=== PATIENT | male | born 1975 | race African-American/Black ===

== ENCOUNTER 2020-01-23 21:40 | Emergency (ER) | payer OTHER ==
[~2020-01-23] VITALS: Ht 180.3 cm; Wt 83.9 kg
[2020-01-23] MEDS: INSULIN REGULAR, HUMAN 100 UNIT in IV NS 0.9% 99 ML IV STA ×2 (00:25)
--- NOTE | 2020-01-23 21:43 | NUR ---
[facility] [phone]
--- NOTE | 2020-01-23 22:23 | NUR ---
BG 501, AWARE
[2020-01-23] MEDS ORDERED: IV NS 0.9% 1,000 ML BAG IV ONE (22:30)
[2020-01-23] MEDS ORDERED: IOHEXOL-300 100 ML VIAL IV ONE (22:42)
[2020-01-23] MEDS ORDERED: IV NS 0.9% 250 ML IV ONE (22:43)
[2020-01-23 23:13] LABS: BASOPHILS % (AUTO) 0.1 % (0.0-2.0); EOSINOPHILS % (AUTO) 0.1 % (0.0-6.0); HEMATOCRIT 30 % (39-51); HEMOGLOBIN 9.7 g/dL (13.5-17.5); LYMPHOCYTES % (AUTO) 2.8 % (20.0-44.0); MEAN CORPUSCULAR HGB CONC 32 g/dl (31.0-36.0); MEAN CORPUSCULAR VOLUME 80 fL (80-96); MONOCYTES # (AUTO) 7.1 /CMM (0.1-1.30); NEUTROPHILS # (AUTO) 27.3 /CMM (1.8-8.9); PLATELET COUNT (AUTO) 360 /CMM (150-450); RED BLOOD CELL COUNT(AUTO) 3.78 MIL/uL (4.5-6.0)
[2020-01-23] MEDS ORDERED: LORAZEPAM INJ 2 MG/ML VIAL IV ONE (23:30)
[2020-01-23 23:39] LABS: ALANINE AMINOTRANSFERASE 296 U/L (12-78); ALKALINE PHOSPHATASE 269 U/L (46-116); ASPARTATE AMINOTRANSFERASE 297 U/L (15-37); B-TYPE NATRIURETIC PEPTIDE 43369 PG/ML (0-125); BILIRUBIN,DIRECT 0.2 mg/dL (0.0-0.2); BILIRUBIN,TOTAL 0.5 mg/dL (0.2-1.0); CALCIUM, SERUM 7.9 mg/dL (8.5-10.1); CARBON DIOXIDE 12 mmol/L (21-32); CHLORIDE 85 mmol/L (98-107); CREATININE 7.4 mg/dL (0.6-1.3); POTASSIUM 5.8 mmol/L (3.5-5.1); TOTAL PROTEIN, SERUM 4.8 g/dL (6.4-8.2)
[2020-01-23 23:42] LABS: UREA NITROGEN, BLOOD 94 mg/dL (7-18)
[2020-01-23 23:43] LABS: ALBUMIN 1.3 g/dL (3.4-5.0); GLUCOSE 474 mg/dL (74-106); SODIUM SERUM 117 mmol/L (136-145); WHITE BLOOD COUNT (AUTO) 35.5 K/uL (4.3-11.0)
[2020-01-23] MEDS ORDERED: PIPERACILLIN /TAZOBACTAM 2.25 G VIAL IV ONE (23:52)
[2020-01-24] MEDS ORDERED: VANCOMYCIN 1 GM in IV D5W 250 ML IV ONE ×2
[2020-01-24] MEDS ORDERED: PIPERACILLIN /TAZOBACTAM 2.25 G in IV D5W 50 ML IV ONE ×2
--- NOTE | 2020-01-24 00:01 | NUR ---
EMT AT BEDSIDE FOR EKG
[2020-01-24] MEDS ORDERED: VANCOMYCIN 1 GM VIAL ONE (00:08)
[2020-01-24] MEDS ORDERED: INSULIN REGULAR, HUMAN 100 UNIT/ML 10 ML VIAL ONE (00:08)
[2020-01-24 00:12] LABS: BAND % (MANUAL) 15 % (0.0-5.0); EOSINOPHILS % (MANUAL) 2 % (0-4); LYMPHOCYTES % (MANUAL) 9 % (16-48); METAMYELOCYTES % 4 % (0-0); MONOCYTES % (MANUAL) 10 % (0-11.0); NEUTROPHILS % (MANUAL) 60 (42-76)
[2020-01-24 00:20] LABS: ABG BASE EXCESS -13.1 mmol/L; ABG OXYGEN SATURATION 95.5 % (92.0-98.5); ABG PCO2 24.6 mmHg (35.0-45.0); ABG PH 7.299 (7.350-7.450); ABG PO2 86.6 mmHg (75.0-100.0); AaDO2 33.7 mmHg; COHb 0.3 % (0.5-1.5); MetHb 0.2 % (0.0-1.5); SITE, ABG Right Radial; VENT MODE, BG Room Air
[2020-01-24] MEDS: INSULIN REGULAR, HUMAN 100 UNIT in IV NS 0.9% 99 ML IV STA ×2 (00:25)
--- NOTE | 2020-01-24 00:25 | NUR ---
REPEAT BG 528, MD AWARE. PT STARTED ON 8UNITS/HR INSULIN
[2020-01-24] MEDS ORDERED: IV NS 0.9% 1,000 ML BAG IV ONE (00:30)
--- NOTE | 2020-01-24 00:35 | NUR ---
PT BROUGHT TO CT
--- NOTE | 2020-01-24 00:55 | NUR ---
SPOKE TO PT REGARDING MED LIST, UNABLE TO PLACED IN "RECONCILE MEDS"
--- NOTE | 2020-01-24 00:56 | NUR ---
SPOKE TO PT STATED HE TAKES: INSULIN LANTUS 30UNITS DAILY INSULIN HUMULIN 60UNITS DAILY XANAX UNKNOWN DOSE PRN NORCO 10 QID CARVEDILOL 30MG DAILY
[2020-01-24] MEDS ORDERED: ONDANSETRON HCL/PF 4 MG/2 ML VIAL IVP PRN (01:00)
[2020-01-24] MEDS ORDERED: ZOLPIDEM TARTRATE 5 MG TABLET PO PRN (01:00)
[2020-01-24] MEDS ORDERED: HYDROCODONE/APAP 5/325MG TABLET PO PRN (01:00)
[2020-01-24] MEDS ORDERED: MAGNESIUM HYDROXIDE 30 ML UDC PO PRN (01:00)
[2020-01-24] MEDS ORDERED: IV NS 0.9% 1,000 ML IV SCH (01:00)
[2020-01-24] MEDS ORDERED: ACETAMINOPHEN 325 MG TABLET PO PRN (01:00)
[2020-01-24] MEDS ORDERED: Z GUARD REMEDY 2 OZ OINT TP PRN (01:00)
[2020-01-24] MEDS ORDERED: INSULIN REGULAR, HUMAN 100 UNIT in IV NS 0.9% 99 ML IV PRN ×4 (01:00→02:30)
--- NOTE | 2020-01-24 01:15 | NUR ---
DR MONROE ON THE PHONE W/ DR TORRES, SURGEON
--- NOTE | 2020-01-24 01:40 | NUR ---
DR RIOS, HOSPITALIST AT BED SIDE
--- NOTE | 2020-01-24 01:41 | NUR ---
[facility] CALLED FOR HIGHER LEVEL OF CARE. PER JOEY ONLY ACCEPTING TRAUMA AND OB.
[2020-01-24] MEDS ORDERED: CLINDAMYCIN IV RTU IN D5W 900 MG/50 ML PIGGYBACK IV SCH (02:00)
--- NOTE | 2020-01-24 02:01 | NUR ---
[facility] FAXED TO [facility] FOR HIGHER LEVEL OF CARE.
[2020-01-24] MEDS ORDERED: CLINDAMYCIN 900 MG/6 ML VIAL ONE (02:15)
[2020-01-24 02:45] VITALS: BP 105/67
--- NOTE | 2020-01-24 04:01 | NUR ---
SPOKE TO ANTWON FROM [facility]. PT ACCEPTED TO 6-ICU [facility] [place]. ADDRESS: [address] [place] [address] CALL , [facility] 2, THEN PRESS 2 AND ASK FOR RANDOLPH DICKSON WITH ETA
--- NOTE | 2020-01-24 04:28 | NUR ---
[facility] TRANSPORT ETA 30 MINS
[2020-01-24 04:30] LABS: CALCIUM, SERUM 7.4 mg/dL (8.5-10.1); CREATININE 7.2 mg/dL (0.6-1.3); MAGNESIUM 2.8 mg/dL (1.8-2.4); PHOSPHORUS 7.5 mg/dL (2.5-4.9); POTASSIUM 5.1 mmol/L (3.5-5.1)
[2020-01-24 04:46] LABS: IRON, SERUM 11 ug/dl (50-175); TOTAL IRON BINDING CAPACITY 95 ug/dl (250-450)
--- NOTE | 2020-01-24 04:53 | NUR ---
PT RESTING COMFORTABLY. VSS.
[2020-01-24 04:59] LABS: FERRITIN 352 ng/mL (8-388)
--- NOTE | 2020-01-24 05:11 | NUR ---
[facility] AT BED SIDE TO TRANSFER THE PT
--- NOTE | 2020-01-24 05:32 | NUR ---
PT TRANSFERED TO [facility] BED 6 ICU.
[2020-01-24] MEDS ORDERED: PIPERACILLIN /TAZOBACTAM 3.375 G in IV D5W 50 ML IV SCH (06:00)
== END 2020-01-24 05:42 | disposition short-term general hospital (02) ==
LOC: ER 21:42 → UNDOADMIN 01-24 01:23 → ICU 01-24 01:23 → ER 01-24 05:42
DX: E10.10 Type 1 diabetes mellitus with ketoacidosis without coma (principal); Z79.899 Other long term (current) drug therapy; N49.3 Fournier gangrene; E87.5 Hyperkalemia; N17.9 Acute kidney failure, unspecified; E87.1 Hypo-osmolality and hyponatremia; Z20.828 Contact with and (suspected) exposure to other viral communicable diseases; L02.31 Cutaneous abscess of buttock; I10 Essential (primary) hypertension; J90 Pleural effusion, not elsewhere classified; I31.3 Pericardial effusion (noninflammatory); Z72.0 Tobacco use; D64.9 Anemia, unspecified; R79.89 Other specified abnormal findings of blood chemistry; E88.09 Other disorders of plasma-protein metabolism, not elsewhere classified
CPT/HCPCS: 36415 ×2; 36600 ×2; 71045; 74176; 80048 ×2; 80061; 80076; 82010; 82728; 82803; 82962 ×8; 83036; 83540; 83605; 83735; 83880; 84100; 84484; 85007; 85025; 85730; 87040 ×2; 87077; 87081; 87186; 87426; 93005; 96361; 96365 ×2; 96366; 96367; 96368; 99291; 99292; A6253; A6403; C9803; J1815 ×2; J2543 ×2; J3370; J3490 ×2; J7030 ×5; J7050; J7060 ×2; Q9967

== ENCOUNTER 2024-11-01 19:05 | Inpatient (IN) | payer MEDICAID ==
[~2024-11-01] VITALS: Ht 182.9 cm; Wt 74.1 kg
[2024-11-01] MEDS: IV NS 0.9% 1,000 ML BAG IV ONE (20:10)
[2024-11-01 20:17] LABS: PLATELET COUNT (AUTO) 143 K/uL (150-450); RED BLOOD CELL COUNT(AUTO) 3.63 MIL/uL (4.5-6.0); RED CELL DISTRIBUTION WIDTH 18.1 % (11.5-15.0); WHITE BLOOD COUNT (AUTO) 6.0 K/uL (4.3-11.0)
[2024-11-01] MEDS ORDERED: ONDANSETRON HCL/PF 4 MG/2 ML VIAL ONE (20:34)
[2024-11-01] MEDS: ONDANSETRON HCL/PF 4 MG/2 ML VIAL IV ONE (20:37)
[2024-11-01 20:48] LABS: ASPARTATE AMINOTRANSFERASE 16 U/L (15-37); CALCIUM, SERUM 8.6 mg/dL (8.5-10.1); SODIUM SERUM 127 mmol/L (136-145); TOTAL PROTEIN, SERUM 7.5 g/dL (6.4-8.2); UREA NITROGEN, BLOOD 53 mg/dL (7-18)
[2024-11-01 20:51] LABS: CREATININE 7.8 mg/dL (0.6-1.3)
[2024-11-01 21:26] LABS: NT-PRO BNP 24469 pg/mL (0-125)
[2024-11-01] MEDS ORDERED: INSULIN REGULAR, HUMAN 100 UNIT/ML 10 ML VIAL ONE (21:49)
[2024-11-01] MEDS ORDERED: CEFTRIAXONE 1GM BAG (ER ONLY) 50 ML IV ONE (21:56)
[2024-11-01 22:24] LABS: PHOSPHORUS 4.8 mg/dL (2.5-4.9)
[2024-11-01] MEDS ORDERED: ACETAMINOPHEN 325 MG TABLET PO PRN (22:30)
[2024-11-01] MEDS ORDERED: INSULIN REGULAR, HUMAN 100 UNIT in IV NS 0.9% 99 ML IV PRN ×2 (22:30→23:30)
[2024-11-01] MEDS: ACETAMINOPHEN 325 MG TABLET PO ONE (22:38)
[2024-11-01] MEDS: CEFTRIAXONE 1 G in IV D5W 50 ML IV ONE (22:45)
[2024-11-01] MEDS ORDERED: MORPHINE SULFATE INJ 4 MG/ML DISP.SYRIN ONE (22:46)
[2024-11-01] MEDS: MORPHINE SULFATE INJ 2 MG/ML DISP.SYRIN IV ONE (22:55)
[2024-11-01] MEDS: IV NS 0.9% 1,000 ML IV PRN (23:19)
[2024-11-01] MEDS: INSULIN REGULAR, HUMAN 100 UNITS in IV NS 0.9% 100 ML IV PRN (23:25)
[2024-11-01] MEDS ORDERED: LEVOFLOXACIN 750 MG /D5W 150ML 150 ML IV ONE (23:47)
[2024-11-01] MEDS ORDERED: AZITHROMYCIN 500 MG VIAL ONE (23:58)
[2024-11-02] VITALS (49 sets, daily range): BP systolic 130–218; BP diastolic 65–121; TEMP 98–98.2; O2SAT 92–100
[2024-11-02] MEDS: AZITHROMYCIN 500 MG in IV D5W 250 ML IV ONE
[2024-11-02] MEDS: LEVOFLOXACIN 750 MG /D5W 150ML 750 MG in PREMIX 1 EA IV ONE (00:34)
[2024-11-02] MEDS: BLOOD SUGAR DIAGNOSTIC 1 EACH STRIP IN SCH ×2 (00:34→12:02)
[2024-11-02] MEDS: IV NS 0.9% 250 ML IV PRN (00:35)
[2024-11-02] MEDS: INSULIN REGULAR, HUMAN 100 UNIT in IV NS 0.9% 99 ML IV PRN (01:08)
[2024-11-02 01:20] LABS: ABG BASE EXCESS -13.3 mmol/L (-2.0-3.0); ABG OXYGEN SATURATION 97.8 % (94.0-98.0); ABG PCO2 24.2 mmHg (35.0-48.0); ABG PH 7.299 (7.350-7.450); ABG PO2 112.5 mmHg (83.0-108.0); ABG TOTAL HEMOGLOBIN 9.5 G/dL (13.5-17.5); FLOW, BLOOD GAS 10.00 L/min (0.00-30.00); FRACTIONATED INSPIRED OXYGEN 60.0 %; SITE, ABG RIGHT BRACHIAL
[2024-11-02] MEDS: HYDROMORPHONE 1 MG/1 ML DISP.SYRIN IV STA (02:46)
[2024-11-02 03:25] LABS: CALCIUM, SERUM 8.3 mg/dL (8.5-10.1); SODIUM SERUM 128.0 mmol/L (136-145); UREA NITROGEN, BLOOD 58.0 mg/dL (7-18)
[2024-11-02 03:30] LABS: CREATININE 8.1 mg/dL (0.6-1.3)
[2024-11-02 04:55] LABS: PLATELET COUNT (AUTO) 124 K/uL (150-450); RED BLOOD CELL COUNT(AUTO) 3.09 MIL/uL (4.5-6.0); RED CELL DISTRIBUTION WIDTH 17.4 % (11.5-15.0); WHITE BLOOD COUNT (AUTO) 5.3 K/uL (4.3-11.0)
[2024-11-02 05:29] LABS: CALCIUM, SERUM 7.9 mg/dL (8.5-10.1); CREATININE 6.7 mg/dL (0.6-1.3); PHOSPHORUS 3.2 mg/dL (2.5-4.9); SODIUM SERUM 133.0 mmol/L (136-145); UREA NITROGEN, BLOOD 46.0 mg/dL (7-18)
[2024-11-02] MEDS: IV D5/0.45 NACL 1,000 ML IV PRN (06:35)
[2024-11-02] MEDS ORDERED: NIFE90TA38 PO (08:01)
[2024-11-02] MEDS ORDERED: INSU100I24 SQ (08:01)
[2024-11-02] MEDS ORDERED: LOSA50TA39 PO (08:01)
[2024-11-02] MEDS ORDERED: HYDR-4077 PO (08:01)
[2024-11-02] MEDS ORDERED: INSU100I14 SQ (08:01)
[2024-11-02] MEDS ORDERED: CARV25TA2 PO (08:01)
[2024-11-02] MEDS ORDERED: SEVE800T28 PO (08:01)
[2024-11-02] MEDS: PANTOPRAZOLE 40 MG VIAL IV SCH (09:10)
[2024-11-02] MEDS: oxyCODONE/APAP (5/325 MG) 1 UDTAB TABLET PO PRN (09:11)
[2024-11-02] MEDS: ONDANSETRON HCL/PF 4 MG/2 ML VIAL IVP PRN (10:28)
[2024-11-02 10:39] LABS: CALCIUM, SERUM 8.2 mg/dL (8.5-10.1); CREATININE 5.2 mg/dL (0.6-1.3); SODIUM SERUM 137.0 mmol/L (136-145); UREA NITROGEN, BLOOD 28.0 mg/dL (7-18)
[2024-11-02] MEDS ORDERED: DEXTROSE 50%-WATER 50 ML DISP.SYRIN IVP PRN (11:00)
[2024-11-02] MEDS: BLOOD SUGAR DIAGNOSTIC 1 EACH STRIP VI SCH (12:10)
[2024-11-02] MEDS: CLONIDINE HCL 0.1 MG TABLET PO PRN (12:12)
[2024-11-02] MEDS: INSULIN REGULAR, HUMAN 100 UNIT/ML 3 ML VIAL SQ PRN (17:42)
[2024-11-02] MEDS: *INSULIN REGULAR(HUMULIN R)HUM 100 UNIT/ML VIAL SQ PRN (22:26)
[2024-11-02] MEDS ORDERED: LEVOFLOXACIN 250 MG /D5W 50 ML 50 ML IV ONE (23:31)
[2024-11-02] MEDS: LEVOFLOXACIN 250 MG /D5W 50 ML 50 ML IV SCH (23:44)
[2024-11-03] VITALS (40 sets, daily range): BP systolic 129–192; BP diastolic 61–100; TEMP 98.2–98.4; O2SAT 92–100
[2024-11-03] MEDS: DEXTROSE 50%-WATER 50 ML DISP.SYRIN IV PRN (01:40)
[2024-11-03] MEDS: HYDROMORPHONE 1 MG/1 ML DISP.SYRIN IV ONE (02:37)
[2024-11-03 04:10] LABS: CALCIUM, SERUM 8.7 mg/dL (8.5-10.1); CREATININE 6.3 mg/dL (0.6-1.3); PHOSPHORUS 4.2 mg/dL (2.5-4.9); SODIUM SERUM 133.0 mmol/L (136-145); UREA NITROGEN, BLOOD 40.0 mg/dL (7-18)
[2024-11-03 04:21] LABS: PLATELET COUNT (AUTO) 123 K/uL (150-450); RED BLOOD CELL COUNT(AUTO) 3.43 MIL/uL (4.5-6.0); RED CELL DISTRIBUTION WIDTH 18.0 % (11.5-15.0); WHITE BLOOD COUNT (AUTO) 3.7 K/uL (4.3-11.0)
[2024-11-03 05:08] LABS: HEPATITIS B SURFACE AB (QUAL) Reactive (.)
[2024-11-03] MEDS ORDERED: CARVEDILOL 12.5 MG TABLET PO SCH ×2 (08:00→09:00)
[2024-11-03] MEDS: PANTOPRAZOLE 40 MG TABLET.DR PO SCH (08:21)
[2024-11-03] MEDS: NIFEdipine XL (30MG) 30 MG TAB PO SCH (08:22)
[2024-11-03] MEDS: LOSARTAN POTASSIUM 50 MG TABLET PO SCH ×2 (08:23→09:00)
[2024-11-03] MEDS: CARVEDILOL 12.5 MG TABLET PO SCH ×2 (08:24→17:00)
[2024-11-03] MEDS: SEVELAMER CARBONATE 800 MG TABLET PO SCH (13:56)
[2024-11-04] VITALS (22 sets, daily range): BP systolic 112–164; BP diastolic 44–83; TEMP 97.8–99; O2SAT 95–100
[2024-11-04] MEDS: CLONIDINE HCL 0.1 MG TABLET PO PRN (00:19)
[2024-11-04 03:02] LABS: PLATELET COUNT (AUTO) 124 K/uL (150-450); RED BLOOD CELL COUNT(AUTO) 3.32 MIL/uL (4.5-6.0); RED CELL DISTRIBUTION WIDTH 17.3 % (11.5-15.0); WHITE BLOOD COUNT (AUTO) 3.8 K/uL (4.3-11.0)
[2024-11-04 03:20] LABS: CALCIUM, SERUM 8.3 mg/dL (8.5-10.1); CREATININE 4.7 mg/dL (0.6-1.3); PHOSPHORUS 3.2 mg/dL (2.5-4.9); SODIUM SERUM 138.0 mmol/L (136-145); UREA NITROGEN, BLOOD 26.0 mg/dL (7-18)
[2024-11-04] MEDS: HYDROMORPHONE 1 MG/1 ML DISP.SYRIN IV ONE (23:11)
[2024-11-05] VITALS (8 sets, daily range): BP systolic 135–187; BP diastolic 68–88; TEMP 97.3–99; O2SAT 100
[2024-11-05 06:21] LABS: PLATELET COUNT (AUTO) 118 K/uL (150-450); RED BLOOD CELL COUNT(AUTO) 3.30 MIL/uL (4.5-6.0); RED CELL DISTRIBUTION WIDTH 17.7 % (11.5-15.0); WHITE BLOOD COUNT (AUTO) 3.9 K/uL (4.3-11.0)
[2024-11-05 06:28] LABS: CALCIUM, SERUM 8.6 mg/dL (8.5-10.1); CREATININE 5.2 mg/dL (0.6-1.3); PHOSPHORUS 3.4 mg/dL (2.5-4.9); SODIUM SERUM 135.0 mmol/L (136-145); UREA NITROGEN, BLOOD 32.0 mg/dL (7-18)
[2024-11-06] VITALS: BP 152/78; TEMP 97.5; O2SAT 100
[2024-11-06 04:00] VITALS: BP_SYST 152; BP_SYST 162; BP_DIAS 69; BP_DIAS 78; TEMP 97.5; TEMP 97.9; O2SAT 100
[2024-11-06 08:00] VITALS: BP 154/66; TEMP 98.2; O2SAT 96
[2024-11-06 08:32] LABS: PLATELET COUNT (AUTO) 147 K/uL (150-450); RED BLOOD CELL COUNT(AUTO) 3.39 MIL/uL (4.5-6.0); RED CELL DISTRIBUTION WIDTH 17.8 % (11.5-15.0); WHITE BLOOD COUNT (AUTO) 4.0 K/uL (4.3-11.0)
[2024-11-06 08:47] LABS: CALCIUM, SERUM 8.8 mg/dL (8.5-10.1); CREATININE 4.1 mg/dL (0.6-1.3); PHOSPHORUS 2.9 mg/dL (2.5-4.9); SODIUM SERUM 135.0 mmol/L (136-145); UREA NITROGEN, BLOOD 25.0 mg/dL (7-18)
[2024-11-06] MEDS ORDERED: NEPRO VAN 237 ML CAN PO PRN (11:30)
[2024-11-06 12:00] VITALS: BP 122/60; TEMP 97.9; O2SAT 99
[2024-11-06 16:00] VITALS: BP 114/66; TEMP 98.6; O2SAT 98
[2024-11-06] MEDS: GABAPENTIN 100 MG CAPSULE PO SCH (16:16)
[2024-11-06] MEDS: LEVOFLOXACIN (250MG) 250 MG TABLET PO SCH (23:29)
[2024-11-07] VITALS: BP_SYST 141; BP_DIAS 141; BP_DIAS 64; TEMP 98.1; O2SAT 97
[2024-11-07 05:00] VITALS: BP 149/70; TEMP 98.1; O2SAT 97
[2024-11-07 08:00] VITALS: BP 150/83; TEMP 98.2; O2SAT 100
[2024-11-07 11:30] VITALS: BP 147/63; TEMP 98.1; O2SAT 100
[2024-11-07 16:00] VITALS: BP 155/81; TEMP 98.2; O2SAT 100
[2024-11-07 20:00] VITALS: BP 141/61; TEMP 98.4; O2SAT 100
[2024-11-07] MEDS: SENNOSIDES 8.6 MG TABLET PO SCH (21:03)
[2024-11-07] MEDS: INSULIN GLARGINE, 100 UNIT/ML CARTRIDGE SQ SCH (21:12)
[2024-11-08] VITALS: BP 147/69; TEMP 98.1; O2SAT 100
[2024-11-08 04:00] VITALS: BP 100/64; TEMP 97.7; O2SAT 99
[2024-11-08 06:05] LABS: PLATELET COUNT (AUTO) 151 K/uL (150-450); RED BLOOD CELL COUNT(AUTO) 3.18 MIL/uL (4.5-6.0); RED CELL DISTRIBUTION WIDTH 17.5 % (11.5-15.0); WHITE BLOOD COUNT (AUTO) 4.3 K/uL (4.3-11.0)
[2024-11-08 06:17] LABS: ASPARTATE AMINOTRANSFERASE 23.0 U/L (15-37); CALCIUM, SERUM 8.8 mg/dL (8.5-10.1); CREATININE 5.8 mg/dL (0.6-1.3); PHOSPHORUS 3.0 mg/dL (2.5-4.9); SODIUM SERUM 136.0 mmol/L (136-145); TOTAL PROTEIN, SERUM 6.0 g/dL (6.4-8.2); UREA NITROGEN, BLOOD 32.0 mg/dL (7-18)
[2024-11-08 07:30] VITALS: BP 104/59; TEMP 97.3; O2SAT 100
[2024-11-08 15:47] VITALS: BP 140/70; TEMP 97.9; O2SAT 100
[2024-11-08 20:00] VITALS: BP 147/78; TEMP 97.5; O2SAT 100
[2024-11-08 23:02] VITALS: BP 147/78; TEMP 97.5; O2SAT 100
[2024-11-09 06:49] LABS: CALCIUM, SERUM 8.5 mg/dL (8.5-10.1); CREATININE 0.8 mg/dL (0.6-1.3); SODIUM SERUM 143.0 mmol/L (136-145); UREA NITROGEN, BLOOD 18.0 mg/dL (7-18)
[2024-11-09 08:00] VITALS: BP 163/78; TEMP 97.6; O2SAT 99
[2024-11-09 08:20] VITALS: BP 180/94
[2024-11-09 08:34] VITALS: BP 163/78
[2024-11-09] MEDS: BISACODYL (5 MG) 5 MG TABLET.DR PO PRN (10:28)
[2024-11-09] MEDS: POTASSIUM CHLORIDE 20 MEQ TAB.PRT.SR PO SCH (10:28)
[2024-11-09] MEDS ORDERED: GABA100C PO (10:50)
== END 2024-11-09 15:32 | DRG 420 ==
LOC: ER 19:07 → ICU 22:14 → TELE 11-04 16:42 → MED 11-08 20:34
PROVIDERS: ADMIT Registered Nurse Psychiatric/Mental Health; ATTEND Nurse Practitioner Family
PROC: 5A1D70Z Performance of Urinary Filtration, Intermittent, Less than 6 Hours Per Day (ICD-10-PCS; principal; 2024-11-02)
DX: E10.10 Type 1 diabetes mellitus with ketoacidosis without coma (principal); J96.01 Acute respiratory failure with hypoxia; I12.0 Hypertensive chronic kidney disease with stage 5 chronic kidney disease or end stage renal disease; D63.8 Anemia in other chronic diseases classified elsewhere; N18.6 End stage renal disease; E10.22 Type 1 diabetes mellitus with diabetic chronic kidney disease; E87.70 Fluid overload, unspecified; E87.5 Hyperkalemia; F17.210 Nicotine dependence, cigarettes, uncomplicated; G89.29 Other chronic pain; Z71.6 Tobacco abuse counseling; Z87.01 Personal history of pneumonia (recurrent); Z88.0 Allergy status to penicillin; Z79.4 Long term (current) use of insulin; Z99.2 Dependence on renal dialysis; Z93.3 Colostomy status; J44.9 Chronic obstructive pulmonary disease, unspecified; Z99.81 Dependence on supplemental oxygen; E83.9 Disorder of mineral metabolism, unspecified; R53.1 Weakness
CPT/HCPCS: 36415; 36600; 71045-TC; 80048-TC; 80053-TC; 80076-TC; 82010-TC; 82803-TC; 82962-TC; 83690-TC; 83735-TC; 83880; 83935-TC; 84100-TC; 84484-TC; 85025-TC; 86706; 87040-TC; 87081-TC; 87340; 90935-TC; 94799-TC; 97110-TC; 97116-TC; 97530-TC; 97535-TC; A4216; A4223; G0378; J0456; J0696; J1171; J1815; J1956; J2270; J2405; J2470; J3490; J7030; J7040; J7050; J7060

== ENCOUNTER 2024-11-15 21:22 | Emergency (ER) | payer MEDICAID ==
[~2024-11-15] VITALS: Ht 182.9 cm; Wt 77.1 kg
[~2024-11-15 21:22] MED LIST: CARV25TA2 PO; GABA100C PO; HYDR-4077 PO; INSU100I14 SQ; INSU100I24 SQ; LOSA50TA39 PO; NIFE90TA38 PO; SEVE800T28 PO
[2024-11-15 22:32] LABS: PLATELET COUNT (AUTO) 206 K/uL (150-450); RED BLOOD CELL COUNT(AUTO) 3.04 MIL/uL (4.5-6.0); RED CELL DISTRIBUTION WIDTH 18.4 % (11.5-15.0); WHITE BLOOD COUNT (AUTO) 4.2 K/uL (4.3-11.0)
[2024-11-15 22:38] LABS: CALCIUM, SERUM 8.6 mg/dL (8.5-10.1); SODIUM SERUM 134.0 mmol/L (136-145); UREA NITROGEN, BLOOD 55.0 mg/dL (7-18)
[2024-11-15 22:40] LABS: CREATININE 7.5 mg/dL (0.6-1.3)
[2024-11-15 22:44] LABS: ASPARTATE AMINOTRANSFERASE 9.0 U/L (15-37); TOTAL PROTEIN, SERUM 6.8 g/dL (6.4-8.2)
[2024-11-15] MEDS: INSULIN REGULAR, HUMAN 100 UNIT/ML 10 ML VIAL IV ONE (23:21)
[2024-11-15] MEDS ORDERED: DEXTROSE 50%-WATER 50 ML DISP.SYRIN ONE (23:24)
[2024-11-15] MEDS: DEXTROSE 50%-WATER 50 ML DISP.SYRIN IVP ONE (23:31)
[2024-11-16 01:06] VITALS: BP 144/86; TEMP 97.7; O2SAT 100
== END 2024-11-16 01:06 | disposition home or self-care (01) ==
LOC: ER 21:23
DX: R06.02 Shortness of breath (principal); I12.0 Hypertensive chronic kidney disease with stage 5 chronic kidney disease or end stage renal disease; E11.22 Type 2 diabetes mellitus with diabetic chronic kidney disease; N18.6 End stage renal disease; F19.10 Other psychoactive substance abuse, uncomplicated; Z79.4 Long term (current) use of insulin; Z79.899 Other long term (current) drug therapy; Z87.01 Personal history of pneumonia (recurrent); Z88.0 Allergy status to penicillin; Z93.3 Colostomy status; Z99.2 Dependence on renal dialysis
CPT/HCPCS: 99285; 96374; 71045; 96375; 93005; 84145; 85025; 83735; 36415; 80053; 82962; 86140; J1815

== ENCOUNTER 2024-11-21 16:12 | Inpatient (IN) | payer MEDICAID ==
[~2024-11-21] VITALS: Ht 182.9 cm; Wt 74.6 kg
[2024-11-21 02:00] VITALS: BP 201/85; TEMP 97.5; O2SAT 97
[2024-11-21] MEDS ORDERED: ONDANSETRON HCL/PF 4 MG/2 ML VIAL ONE (17:11)
[2024-11-21 17:12] LABS: PLATELET COUNT (AUTO) 160 K/uL (150-450); RED BLOOD CELL COUNT(AUTO) 3.28 MIL/uL (4.5-6.0); RED CELL DISTRIBUTION WIDTH 18.8 % (11.5-15.0); WHITE BLOOD COUNT (AUTO) 4.1 K/uL (4.3-11.0)
[2024-11-21] MEDS: ONDANSETRON HCL/PF - ER 4 MG/2 ML VIAL IV ONE (17:16)
[2024-11-21] MEDS: MORPHINE SULFATE INJ 2 MG/ML DISP.SYRIN IV ONE (17:17)
[2024-11-21 17:23] LABS: CALCIUM, SERUM 8.0 mg/dL (8.5-10.1); CREATININE 5.3 mg/dL (0.6-1.3); SODIUM SERUM 138 mmol/L (136-145); UREA NITROGEN, BLOOD 24 mg/dL (7-18)
[2024-11-21 17:24] LABS: PHOSPHORUS 4.3 mg/dL (2.5-4.9)
[2024-11-21] MEDS: hydrALAZINE HCL IV 20 MG VIAL IV ONE (17:26)
[2024-11-21 17:35] LABS: ASPARTATE AMINOTRANSFERASE 10 U/L (15-37); NT-PRO BNP > 25000 pg/mL (0-125); TOTAL PROTEIN, SERUM 6.9 g/dL (6.4-8.2)
[2024-11-21 18:33] LABS: FRACTIONATED INSPIRED OXYGEN-V 21.0 %; SITE, VBG VBG - N/A; VBG BASE EXCESS -1.0 mmol/L (-2.0-3.0); VBG HCO3 23.2 mmol/L (22.0-29.0); VBG MetHb 0.1 % (0.5-1.5); VBG OXYGEN SATURATION 47.0 % (60.0-85.0); VBG PCO2 36.5 mmHg (38.0-54.0); VBG PH 7.421 (7.320-7.430); VBG PO2 26.3 mmHg (23.0-48.0); VBG TOTAL HEMOGLOBIN 9.1 G/dL (13.5-17.5)
[2024-11-21 20:50] VITALS: BP 201/85; TEMP 97.5; O2SAT 99
[2024-11-21] MEDS ORDERED: ZOLPIDEM TARTRATE 5 MG TABLET PO PRN (22:00)
[2024-11-21] MEDS ORDERED: ONDANSETRON HCL/PF 4 MG/2 ML VIAL IVP PRN (22:00)
[2024-11-21] MEDS ORDERED: ACETAMINOPHEN 325 MG TABLET PO PRN (22:00)
[2024-11-22] VITALS (7 sets, daily range): BP systolic 134–196; BP diastolic 67–95; TEMP 97.1–98.4; O2SAT 94–100
[2024-11-22] MEDS: HYDROCODONE/APAP 5/325MG TABLET PO PRN (00:09)
[2024-11-22] MEDS: GABAPENTIN 100 MG CAPSULE PO SCH (04:52)
[2024-11-22 07:04] LABS: CALCIUM, SERUM 7.1 mg/dL (8.5-10.1); CREATININE 5.9 mg/dL (0.6-1.3); PHOSPHORUS 4.6 mg/dL (2.5-4.9); SODIUM SERUM 137.0 mmol/L (136-145); UREA NITROGEN, BLOOD 29.0 mg/dL (7-18)
[2024-11-22] MEDS: BLOOD SUGAR DIAGNOSTIC 1 EACH STRIP VI SCH (07:14)
[2024-11-22] MEDS: SEVELAMER CARBONATE 800 MG TABLET PO SCH (08:16)
[2024-11-22] MEDS: INSULIN REGULAR, HUMAN 100 UNIT/ML 3 ML VIAL SQ PRN (08:57)
[2024-11-22] MEDS ORDERED: INSULIN GLARGINE, 100 UNIT/ML CARTRIDGE SQ SCH (09:00)
[2024-11-22 09:13] LABS: PLATELET COUNT (AUTO) 154 K/uL (150-450); RED BLOOD CELL COUNT(AUTO) 3.24 MIL/uL (4.5-6.0); RED CELL DISTRIBUTION WIDTH 19.8 % (11.5-15.0); WHITE BLOOD COUNT (AUTO) 3.8 K/uL (4.3-11.0)
[2024-11-22] MEDS: INSULIN GLARGINE, 100 UNIT/ML CARTRIDGE SQ SCH (09:40)
[2024-11-22] MEDS: PANTOPRAZOLE 40 MG VIAL IV SCH (09:46)
[2024-11-22] MEDS: LOSARTAN POTASSIUM 50 MG TABLET PO SCH (09:47)
[2024-11-22] MEDS: NIFEdipine XL (30MG) 30 MG TAB PO SCH (09:47)
[2024-11-22] MEDS: Z GUARD REMEDY 4 OZ OINT TP PRN (09:48)
[2024-11-22] MEDS: CARVEDILOL 12.5 MG TABLET PO SCH (09:49)
[2024-11-22] MEDS ORDERED: ALBUTEROL FS 2.5 MG/0.5 ML VIAL.NEB NEB PRN (11:30)
[2024-11-22] MEDS: MORPHINE SULFATE INJ 2 MG/ML DISP.SYRIN IV PRN (12:21)
[2024-11-22] MEDS: *INSULIN REGULAR(HUMULIN R)HUM 100 UNIT/ML VIAL SQ PRN (21:44)
[2024-11-23 07:00] VITALS: BP 162/97; O2SAT 97
[2024-11-23 07:24] LABS: PLATELET COUNT (AUTO) 146 K/uL (150-450); RED BLOOD CELL COUNT(AUTO) 3.40 MIL/uL (4.5-6.0); RED CELL DISTRIBUTION WIDTH 19.4 % (11.5-15.0); WHITE BLOOD COUNT (AUTO) 3.2 K/uL (4.3-11.0)
[2024-11-23 08:18] LABS: CALCIUM, SERUM 7.7 mg/dL (8.5-10.1); CREATININE 4.9 mg/dL (0.6-1.3); SODIUM SERUM 139.0 mmol/L (136-145); UREA NITROGEN, BLOOD 22.0 mg/dL (7-18)
[2024-11-23] MEDS: AMLODIPINE BESYLATE 5 MG TABLET PO SCH (09:00)
[2024-11-23 16:00] VITALS: BP 175/109; TEMP 97.5; O2SAT 97
[2024-11-23 20:00] VITALS: BP 158/72; TEMP 97.9; O2SAT 100
[2024-11-23] MEDS: INSULIN GLARGINE, 100 UNIT/ML CARTRIDGE SQ SCH (21:46)
[2024-11-24 06:12] LABS: CORTISOL SERUM 8.7 ug/dL (6.2-19.4)
[2024-11-24 07:00] VITALS: BP 149/92; TEMP 98.4; O2SAT 98
[2024-11-24] MEDS: PANTOPRAZOLE 40 MG TABLET.DR PO SCH (08:37)
[2024-11-24 16:00] VITALS: BP 136/77; TEMP 97.5; O2SAT 99
[2024-11-24 20:00] VITALS: BP 150/88; TEMP 97.7; O2SAT 100
[2024-11-25] MEDS: DEXTROSE 50%-WATER 50 ML DISP.SYRIN IV PRN (06:49)
[2024-11-25 07:30] VITALS: BP 136/74; TEMP 98.1; O2SAT 98
[2024-11-25] MEDS: MAGNESIUM HYDROXIDE 30 ML UDC PO PRN (08:35)
[2024-11-25] MEDS: LACTULOSE 10 G/15 ML UDC (PYXIS) PO PRN (11:35)
[2024-11-25 16:00] VITALS: BP 157/85; TEMP 97.5; O2SAT 100
[2024-11-25 18:58] LABS: PLATELET COUNT (AUTO) 118 K/uL (150-450); RED BLOOD CELL COUNT(AUTO) 3.29 MIL/uL (4.5-6.0); RED CELL DISTRIBUTION WIDTH 19.3 % (11.5-15.0); WHITE BLOOD COUNT (AUTO) 3.4 K/uL (4.3-11.0)
[2024-11-25 19:41] LABS: ASPARTATE AMINOTRANSFERASE 32.0 U/L (15-37); CALCIUM, SERUM 8.4 mg/dL (8.5-10.1); CREATININE 5.7 mg/dL (0.6-1.3); PHOSPHORUS 2.7 mg/dL (2.5-4.9); SODIUM SERUM 134.0 mmol/L (136-145); TOTAL PROTEIN, SERUM 6.3 g/dL (6.4-8.2); UREA NITROGEN, BLOOD 38.0 mg/dL (7-18)
[2024-11-25 20:00] VITALS: BP 174/63; TEMP 98.2; O2SAT 99
[2024-11-25] MEDS: INSULIN GLARGINE, 100 UNIT/ML CARTRIDGE SQ SCH (21:23)
[2024-11-26 08:00] VITALS: BP 198/100; TEMP 98.2; O2SAT 100
[2024-11-26 08:38] VITALS: BP 190/80; TEMP 98.2; O2SAT 100
[2024-11-26] MEDS: MAG HYDROX/AL HYDROX/SIMETH 30 ML UDC PO PRN (09:31)
[2024-11-26 10:33] VITALS: BP 125/74; TEMP 98.2; O2SAT 100
[2024-11-26] MEDS ORDERED: LOSA50TA39 PO (13:26)
[2024-11-26] MEDS ORDERED: HYDR-4077 PO (13:26)
[2024-11-26] MEDS ORDERED: CARV12.52 PO (13:26)
[2024-11-26] MEDS ORDERED: SEVE800T7 PO (13:26)
[2024-11-26] MEDS ORDERED: GABA100C PO (13:26)
[2024-11-26] MEDS ORDERED: NIFE-35 PO (13:26)
[2024-11-26] MEDS ORDERED: INSU100I30 SQ (13:26)
[2024-11-26] MEDS ORDERED: PANT40TA49 PO (13:26)
[2024-11-26 16:00] VITALS: BP 150/80; TEMP 97.6; O2SAT 97
[2024-11-26 18:07] LABS: ALDOSTERONE,LCMS <1.0 ng/dL (.)
== END 2024-11-26 18:22 | disposition home or self-care (01) | DRG 199 ==
LOC: ER 16:19 → TELE 20:32 → MED 11-22 18:34
PROVIDERS: ADMIT Student in an Organized Health Care Education/Training Program
PROC: 5A1D70Z Performance of Urinary Filtration, Intermittent, Less than 6 Hours Per Day (ICD-10-PCS; principal; 2024-11-22)
DX: I16.0 Hypertensive urgency (principal); I50.23 Acute on chronic systolic (congestive) heart failure; N18.6 End stage renal disease; D63.1 Anemia in chronic kidney disease; B35.1 Tinea unguium; E11.22 Type 2 diabetes mellitus with diabetic chronic kidney disease; E11.40 Type 2 diabetes mellitus with diabetic neuropathy, unspecified; E87.6 Hypokalemia; G89.29 Other chronic pain; L60.3 Nail dystrophy; Z79.4 Long term (current) use of insulin; Z87.891 Personal history of nicotine dependence; Z87.01 Personal history of pneumonia (recurrent); Z79.899 Other long term (current) drug therapy; Z88.0 Allergy status to penicillin; Z99.2 Dependence on renal dialysis; R53.1 Weakness; N25.0 Renal osteodystrophy; M79.672 Pain in left foot; E83.89 Other disorders of mineral metabolism; M21.42 Flat foot [pes planus] (acquired), left foot; M21.41 Flat foot [pes planus] (acquired), right foot; J44.9 Chronic obstructive pulmonary disease, unspecified; I13.2 Hypertensive heart and chronic kidney disease with heart failure and with stage 5 chronic kidney disease, or end stage renal disease; Z20.822 Contact with and (suspected) exposure to COVID-19
CPT/HCPCS: 36415; 71045-TC; 76770-TC; 80048-TC; 80053-TC; 80076-TC; 82088; 82533; 82803-TC; 82962-TC; 83690-TC; 83735-TC; 83880; 84100-TC; 84244; 84443-TC; 84484-TC; 85025-TC; 87081-TC; 90935-TC; 93307-TC; 97110-TC; 97116-TC; 97530-TC; 97535-TC; A6403; G0378; J0360; J1815; J2270; J2405; J2470; J7030